=== PATIENT | female | born 2000 | race Caucasian/White ===

== ENCOUNTER 2021-05-07 16:15 | Emergency (ER) | payer OTHER, MEDICAID, SELFPAY ==
[2021-05-07 16:34] VITALS: PULSE 99; RESP 17; TEMP 36.3; O2SAT 99; BMI 29.2
[2021-05-07 17:00] VITALS: PULSE 80; RESP 18; O2SAT 97
[2021-05-07 17:03] LABS: COVID19 -Nasal RAPID Negative (Negative)
--- NOTE | 2021-05-07 17:25 | ED_ITS ---
HPI - URI/Sore Throat <Irene Bueno DO - Last Filed: 05/08/21 07:51> General Chief Complaint: Upper Respiratory Symptoms Stated Complaint: Cold, Chest Pain Time Seen by Provider: 05/07/21 17:24 Source: patient Mode of arrival: Ambulatory Limitations: no limitations History of Present Illness HPI Narrative: This is a 20-year-old female comes in with a complaint of nasal congestion that progressed to chest pain, cough that is been nonproductive. Patient states she feels short of breath when she changed her toddler around but otherwise has not been short of breath. She has not had fevers but she has felt generally unwell. She has tried DayQuil and NyQuil without improvement. She has had 7 days of symptoms. She had 1 episode of vomiting 2 days ago. She states that chest discomfort is sort of subxiphoid and radiates towards her back. She denies any other diarrhea constipation or urinary symptoms. She denies medical issues. She has had a prior cholecystectomy. Tobacco, alcohol or illicit. She states her child similar symptoms. Related Data Home Medications Medication Instructions Recorded Confirmed famotidine 20 mg tablet 20 mg PO QDAY #0 04/16/17 sucralfate 1 gram tablet 1 gm PO ACHS #0 04/16/17 Previous Rx's Medication Instructions Recorded oxycodone 5 mg tablet 5 mg PO Q4HP PRN #30 tab 04/17/17 dextromethorphan HBr 15 mg tablet 30 mg PO Q6H PRN #10 tab 05/07/21 (Delsym Cough) Allergies Allergy/AdvReac Type Severity Reaction Status Date / Time No Known Allergies Allergy Uncoded 08/08/17 12:47 Review of Systems <Irene Bueno DO - Last Filed: 05/08/21 07:51> Review of Systems ROS Unobtainable: All systems reviewed & are unremarkable except as noted in HPI and below Patient History <Irene Bueno DO - Last Filed: 05/08/21 07:51> Social History Smoking Status: Never smoker Smoking Status: Never smoker alcohol intake frequency: other Substance Use Type: does not use Exam <Irene Bueno DO - Last Filed: 05/08/21 07:51> Narrative Exam Narrative: GEN: well nourished, well appearing female, alert and oriented x 3, patient appears to be in mild distress. HEENT: Atraumatic, pupils are equal round reactive to light, extraocular movements are intact, nares clear nasal congestion, TMs are clear with no fluid, there is no conjunctival pallor. Throat is clear without any exudates, erythema, tonsillar enlargement or uvular deviation HEART: Regular rate and rhythm without murmur, clicks, rubs. LUNGS:Lungs clear to auscultation, no wheezes, rales, crackles, chest moves symmetrically, no tachypnea accessory muscle use. Patient speaks in full sentences but does have a dry persistent cough. ABD:bowel sounds normal, soft, non-tender, no guarding, rebound, rigidity, no masses noted, no hepatosplenomegaly MSCL: Full range of motion, normal gait NEURO:CN 2-12 intact, sensation normal Initial Vital Signs Initial Vital Signs: Vital Signs Temperature 97.3 F L 05/07/21 16:34 Pulse Rate 99 H 05/07/21 16:34 Respiratory Rate 17 05/07/21 16:34 Pulse Oximetry 99 05/07/21 16:34 <Jass Moreau DO - Last Filed: 05/07/21 23:09> Initial Vital Signs Initial Vital Signs: Vital Signs Temperature 97.3 F L 05/07/21 16:34 Pulse Rate 99 H 05/07/21 16:34 Respiratory Rate 17 05/07/21 16:34 Pulse Oximetry 99 05/07/21 16:34 Course <Irene Bueno, DO - Last Filed: 05/08/21 07:51> Orders Ordered: Discontinued Medications Benzonatate (Benzonatate 100 Mg Capsule) 100 mg PO NOW ONE Stop: 05/07/21 17:42 Last Admin: 05/07/21 17:47 Dose: 100 mg Documented by: VÍCTOR Vital Signs Vital signs: Vital Signs - 8 hr 05/07/21 16:34 05/07/21 17:00 05/07/21 17:30 Temperature 97.3 F L Pulse Rate 99 H 80 111 H Respiratory Rate 17 18 Blood Pressure Pulse Oximetry 99 97 99 05/07/21 17:32 05/07/21 19:45 Temperature 98.0 F Pulse Rate 95 H 80 Respiratory Rate 16 Blood Pressure 115/87 117/72 Pulse Oximetry 99 98 <Jass Moreau DO - Last Filed: 05/07/21 23:09> Orders Ordered: Discontinued Medications Benzonatate (Benzonatate 100 Mg Capsule) 100 mg PO NOW ONE Stop: 05/07/21 17:42 Last Admin: 05/07/21 17:47 Dose: 100 mg Documented by: YAIMAYERS Vital Signs Vital signs: Vital Signs - 8 hr 05/07/21 16:34 05/07/21 17:00 05/07/21 17:30 Temperature 97.3 F L Pulse Rate 99 H 80 111 H Respiratory Rate 17 18 Blood Pressure Pulse Oximetry 99 97 99 05/07/21 17:32 05/07/21 19:45 Temperature 98.0 F Pulse Rate 95 H 80 Respiratory Rate 16 Blood Pressure 115/87 117/72 Pulse Oximetry 99 98 MDM - URI/Sore Throat <Irene Bueno DO - Last Filed: 05/08/21 07:51> Lab Data Labs: Lab Results 05/07/21 05/07/21 Range/Units 16:45 17:56 Serum , Qual Negative (Negative) SARS-CoV-2 (PCR) Negative (Negative) ECG Data Attestation: I personally reviewed and interpreted this ECG as follows: Prior ECG tracings: not available for review Interpretation: Sinus rhythm rate 82 [place] 144 QRS is 72 and QTC of 427. No acute ST elevation or depression noted. No prior for comparison. [facility] Narrative Medical decision making narrative: Dr. Bueno: This is a 20-year-old female with what appears to be upper respiratory infection but complaint of chest pain. EKG is reassuring. COVID swab was negative. Patient has quite a bit of upper respiratory nasal congestion with dry nonproductive cough. Chest x-ray was obtained to evaluate for pneumonia although her physical exam is reassuring from this aspect. This was still pending the patient was signed out to Dr. Moreau to follow chest x-ray and disposition. Dr Moreau: Received turned over. Review patient's history and physical. Awaiting results of chest X way which resulted as no acute disease. Patient not hypoxic. No indication for antibiotics. COVID was negative. I did discuss this with the patient. She was given return precautions and follow-up instructions. She expressed understanding and agreement. <Jass Moreau DO - Last Filed: 05/07/21 23:09> Lab Data Labs: Lab Results 05/07/21 05/07/21 Range/Units 16:45 17:56 Serum , Qual Negative (Negative) SARS-CoV-2 (PCR) Negative (Negative) Imaging Data Chest x-ray: Radiologist's Impression: [address] [address] XRay Report Signed Patient: Jeny Richards MR#: [id number] : 2000 Acct:[id number] Age/Sex: 20 / F Date of Service: 05/07/21 Loc: ED Accession Number: [id number] ?? Procedure: XR chest 1V Ordering Provider: Irene Bueno D.O. PROCEDURE:? XR CHEST 1V ? INDICATIONS:? cough x 1 week, chest pain ? TECHNIQUE:? One view of the chest was acquired.? ? COMPARISON:? None. ? FINDINGS:? ? Surgical changes and devices:? Cholecystectomy clips. ? Lungs and pleura:? Lungs are clear.? No pleural effusions or pneumothorax.? ? Mediastinum:? Mediastinal contours appear normal.? Heart size is normal.? ? Bones and chest wall:? No suspicious bony lesions.? Overlying soft tissues appear unremarkable.? ? IMPRESSION:? No acute cardiopulmonary abnormality. ? ? ? Dictated by: Gerardo Rios M.D. on 05/07/2021 at 19:22 ? ? Approved by: Gerardo Rios M.D. on 05/07/2021 at 19:22?? MDM Narrative Medical decision making narrative: Dr Moreau: Received turned over. Review patient's history and physical. Awaiting results of chest X way which resulted as no acute disease. Patient not hypoxic. No indication for antibiotics. COVID was negative. I did discuss this with the patient. She was given return precautions and follow-up instructions. She expressed understanding and agreement. Discharge Plan Departure Patient Disposition: Home Clinical Impression: Acute upper respiratory infection Instructions: DI for Viral Upper Respiratory Infection -- Adult Activity Restrictions/Additional Instructions: Follow-up if you are not improving over the next week. You may take cough medication as prescribed. This medication can make you sleepy do not drive, perform hazardous activities or make any major decisions wh ile taking it. This medication will make you constipated please take a stool softener once to twice daily until stools are soft and regular. Please return for persistent fevers, new or worsening chest pain, shortness of breath, persistent vomiting, passing out, black or bloody stools, coughing up blood or other new or concerning symptoms. Prescriptions: New Delsym Cough 15 mg tablet 30 mg PO Q6H PRN (Reason: cough) Qty: 10 0RF No Action sucralfate 1 GM tablet 1 gm PO ACHS Qty: 0 0RF famotidine 20 MG tablet 20 mg PO QDAY Qty: 0 0RF oxycodone 5 MG tablet 5 mg PO Q4HP PRNQty: 30 0RF
[2021-05-07 17:30] VITALS: PULSE 111; O2SAT 99
[2021-05-07 17:32] VITALS: BP 115/87; PULSE 95; O2SAT 99
--- NOTE | 2021-05-07 17:33 | DI.RAD.S_ITS ---
PROCEDURE: XR CHEST 1V INDICATIONS: cough x 1 week, chest pain TECHNIQUE: One view of the chest was acquired. COMPARISON: None. FINDINGS: Surgical changes and devices: Cholecystectomy clips. Lungs and pleura: Lungs are clear. No pleural effusions or pneumothorax. Mediastinum: Mediastinal contours appear normal. Heart size is normal. Bones and chest wall: No suspicious bony lesions. Overlying soft tissues appear unremarkable. IMPRESSION: No acute cardiopulmonary abnormality. Dictated by: Gerardo Rios M.D. on 05/07/2021 at 19:22 Approved by: Gerardo Rios M.D. on 05/07/2021 at 19:22
[2021-05-07] MEDS: BENZONATATE 100 MG CAPSULE PO (17:47)
[2021-05-07 18:38] LABS: Pregnancy Test Serum,Qual Negative (Negative)
[2021-05-07 19:45] VITALS: BP 117/72; PULSE 80; RESP 16; TEMP 36.7; O2SAT 98
== END 2021-05-07 19:45 | disposition home or self-care (01) ==
PROVIDERS: Emergency Medicine; Emergency Provider Emergency Medicine; Family Provider Pediatrics
DX: R07.9 Chest pain, unspecified (principal); J06.9 Acute upper respiratory infection, unspecified; Z20.822 Contact with and (suspected) exposure to COVID-19
CPT/HCPCS: 71045; 84703; 87635; 93005; 93010; 99283; C9803

== ENCOUNTER 2021-07-30 10:50 | Emergency (ER) | payer OTHER, MEDICAID, SELFPAY ==
[2021-07-30 11:05] VITALS: BP 136/74; PULSE 88; PULSE 89; RESP 18; TEMP 36.6; O2SAT 98; BMI 29.7
[2021-07-30 11:06] VITALS: PULSE 96; O2SAT 98
--- NOTE | 2021-07-30 11:45 | DI.US.S_ITS ---
PROCEDURE: US OB <= 14 WEEKS FETUS INDICATIONS: BLEEDING DURING OUTSIDE/PRIOR DATING DATA: Last menstrual period (LMP): 06/12/2021. TECHNIQUE: Real-time scanning was performed of the fetus and maternal pelvic organs, with image documentation. Endovaginal scanning was also performed to better visualize the fetus and maternal ovaries. COMPARISON: None. FINDINGS: No intrauterine . Endometrial thickness measures 1.6 cm. No evidence of retained products of conception. There is and endocervical fluid collection measuring 1.5 x 0.4 cm Both ovaries unremarkable. 1.6 x 1.2 cm probable right corpus luteum cyst present. No free fluid or adnexal mass. IMPRESSION: 1. No evidence of intrauterine . Fluid in the endocervical canal noted. Differential possibilities include normal early , failure with in progress, endocervical pseudocyst and nonvisualized ectopic . Approved by: Richie Swan M.D. on 07/30/2021 at 11:58
[2021-07-30 11:50] VITALS: BP 110/69; PULSE 91; O2SAT 98
[2021-07-30 12:00] VITALS: BP 109/71; PULSE 80; O2SAT 97
--- NOTE | 2021-07-30 12:07 | ED_ITS ---
HPI - <JAIRO Sarmiento - Last Filed: 07/30/21 14:59> General Chief complaint: Vaginal Bleeding Stated complaint: and bleeding Time Seen by Provider: 07/30/21 12:02 Source: patient Mode of arrival: Ambulatory Limitations: no limitations History of Present Illness HPI Narrative: 20-year-old female with last menstrual period on 06/12/2021, positive test at home on 06/24/2021 presents to the emergency department today with onset of vaginal bleeding and pelvic cramping. She states that her blood is dark red/brown in color. She states that this was a lot of blood for her. She denies any nausea, vomiting, feeling faint, or syncope. She denies any significant pelvic pain on 1 side or the other, she states that this is generalized. Patient has an upcoming OB appointment on August 02, [address] Farnsworth. Related Data Home Medications Medication Instructions Recorded Confirmed famotidine 20 mg tablet 20 mg PO QDAY #0 04/16/17 sucralfate 1 gram tablet 1 gm PO ACHS #0 04/16/17 Previous Rx's Medication Instructions Recorded oxycodone 5 mg tablet 5 mg PO Q4HP PRN #30 tab 04/17/17 dextromethorphan HBr 15 mg tablet 30 mg PO Q6H PRN #10 tab 05/07/21 (Delsym Cough) ketorolac 10 mg tablet 10 mg PO Q8H PRN #14 tab 07/30/21 ondansetron 4 mg disintegrating 4 mg PO DAILY PRN 4 Days #10 tab 07/30/21 tablet Allergies Allergy/AdvReac Type Severity Reaction Status Date / Time No Known Allergies Allergy Uncoded 08/08/17 12:47 Review of Systems <JAIRO Sarmiento - Last Filed: 07/30/21 14:59> Review of Systems Narrative: General: denies fever, chills Head/Neck: denies headache, neck pain Eyes: denies visual changes, eye pain Cardio: denies chest pain, palpitations Respiratory: denies shortness of breath, cough GI: denies abdominal pain, nausea, vomiting, or diarrhea : denies dysuria, hematuria MSK: denies joint pain, muscle weakness Skin: denies rash, itching Neuro: denies numbness, tingling Exam <JAIRO Sarmiento - Last Filed: 07/30/21 14:59> Initial Vital Signs Initial Vital Signs: Vital Signs Temperature 98 F 07/30/21 11:05 Pulse Rate 89 07/30/21 11:05 Respiratory Rate 18 07/30/21 11:05 Blood Pressure 136/74 07/30/21 11:05 Pulse Oximetry 98 07/30/21 11:05 <Irene Bueno DO - Last Filed: 07/30/21 16:50> Initial Vital Signs Initial Vital Signs: Vital Signs Temperature 98 F 07/30/21 11:05 Pulse Rate 89 07/30/21 11:05 Respiratory Rate 18 07/30/21 11:05 Blood Pressure 136/74 07/30/21 11:05 Pulse Oximetry 98 07/30/21 11:05 Course <JAIRO Sarmiento - Last Filed: 07/30/21 14:59> Orders Ordered: ED Orders 07/30/21 11:45 US OB <= 14 weeks fetus Stat 07/30/21 11:58 Urine Microscopic Stat 07/30/21 12:34 CBC Auto Diff [Complete Blood Count AUTO DIFF] Stat CMP [Comprehensive Metabolic Panel] Stat HCG Quantitative /Beta subunit Stat Discontinued Medications Ketorolac Tromethamine (Ketorolac 30 Mg/Ml Vial) 15 mg IM NOW ONE Stop: 07/30/21 13:36 Last Admin: 07/30/21 13:41 Dose: 15 mg Documented by: LANCE Ondansetron HCl (Ondansetron 4 Mg Odt) 4 mg SL NOW ONE Stop: 07/30/21 13:36 Last Admin: 07/30/21 13:40 Dose: 4 mg Documented by: LANCE Vital Signs Vital signs: Vital Signs - 8 hr 07/30/21 11:05 07/30/21 11:06 07/30/21 11:50 Temperature 98 F Pulse Rate 88 96 H 91 H Respiratory Rate 18 Blood Pressure 136/74 110/69 Pulse Oximetry 98 98 98 07/30/21 12:00 07/30/21 13:46 07/30/21 13:47 Temperature Pulse Rate 80 82 Respiratory Rate Blood Pressure 109/71 132/83 Pulse Oximetry 97 99 100 <Irene Bueno DO - Last Filed: 07/30/21 16:50> Orders Ordered: ED Orders 07/30/21 11:45 US OB <= 14 weeks fetus Stat 07/30/21 11:58 Urine Microscopic Stat 07/30/21 12:34 CBC Auto Diff [Complete Blood Count AUTO DIFF] Stat CMP [Comprehensive Metabolic Panel] Stat HCG Quantitative /Beta subunit Stat Discontinued Medications Ketorolac Tromethamine (Ketorolac 30 Mg/Ml Vial) 15 mg IM NOW ONE Stop: 07/30/21 13:36 Last Admin: 07/30/21 13:41 Dose: 15 mg Documented by: LANCE Ondansetron HCl (Ondansetron 4 Mg Odt) 4 mg SL NOW ONE Stop: 07/30/21 13:36 Last Admin: 07/30/21 13:40 Dose: 4 mg Documented by: LANCE Vital Signs Vital signs: Vital Signs - 8 hr 07/30/21 11:05 07/30/21 11:06 07/30/21 11:50 Temperature 98 F Pulse Rate 88 96 H 91 H Respiratory Rate 18 Blood Pressure 136/74 110/69 Pulse Oximetry 98 98 98 07/30/21 12:00 07/30/21 13:46 07/30/21 13:47 Temperature Pulse Rate 80 82 Respiratory Rate Blood Pressure 109/71 132/83 Pulse Oximetry 97 99 100 MDM - OB/Uterine Contractions <JAIRO Sarmiento - Last Filed: 07/30/21 14:59> Lab Data Result diagrams: 07/30/21 12:34 07/30/21 12:34 Labs: Lab Results 07/30/21 07/30/21 07/30/21 Range/Units 11:58 12:34 12:34 WBC 9.8 (4.5-11.0) X10^3/uL RBC 4.73 (4.0-5.2) X10^6/uL Hgb 13.7 (12.0-16.0) g/dL Hct 40.0 (36-46) % MCV 84.5 (80-100) fL MCH 28.9 (26-34) PG MCHC 34.1 (30-36) % RDW 14.1 (11.6-14.8) % Plt Count 257 (150-400) X10^3/uL Neut % (Auto) 72.3 (50-75) % Lymph % (Auto) 20.2 L (25-40) % [place] % (Auto) 6.0 (3-14) % Eos % (Auto) 1.1 L (2-4) % Baso % (Auto) 0.4 (0-2) % Neut # (Auto) 7100 H (8228-5677) /uL Lymph # (Auto) 2000 (6348-1915) /uL [place] # (Auto) 600 (0-900) /uL Eos # (Auto) 100 (0-450) /uL Baso # (Auto) 0 (0-100) /uL Sodium 140 (137-145) mmol/L Potassium 4.0 (3.4-5.1) mmol/L Chloride 107 (98-107) mmol/L Carbon Dioxide 24 (22-32) mmol/L BUN 11 (7-17) mg/dL Creatinine 0.62 (0.52-1.04) mg/dL Estimated GFR > 60.0 (>60) mL/min BUN/Creatinine Ratio 17.7 (6-22) Glucose 87 (70-100) mg/dL Calcium 9.5 (8.4-10.2) mg/dL Total Bilirubin 0.3 (0.2-1.3) mg/dL AST 21 (14-36) IU/L ALT 15 (<35) IU/L Alkaline Phosphatase 55 (38-126) U/L Total Protein 8.5 H (6.3-8.2) g/dL Albumin 5.1 H (3.5-5.0) g/dL Globulin 3.4 (1.7-4.1) g/dL Albumin/Globulin Ratio 1.5 (1.0-2.8) HCG, Quant 3788.2 mIU/mL Urine RBC >100/hpf H (0-5/HPF) Urine WBC 0-1/hpf (0-5/HPF) Ur Squamous Epith Cells 1-5 /hpf (0-5/HPF) Urine Bacteria None seen (None) Ur Culture Indicated? Cult not indicated Point of Care Testing Test Results Positive Urine Dip Bedside Urine Glucose Negative Bedside Urine Bilirubin - Negative Bedside Urine Ketone - Negative Urine Specific [place] 1.015 Bedside Urine Occult Blood +++ Bedside Urine pH 6.5 Bedside Urine Protein +/- 15 Bedside Urine Urobilinogen - Negative Bedside Urine Nitrite - Negative Bedside Urine Leukocytes - Negative Esterase Imaging Data US - OB: Radiologist's Impression: PROCEDURE:? US OB <= 14 WEEKS FETUS ? INDICATIONS:? BLEEDING DURING ? OUTSIDE/PRIOR DATING DATA:? Last menstrual period (LMP):? 06/12/2021.? ? TECHNIQUE:? Real-time scanning was performed of the fetus and maternal pelvic organs, with image documentation.? Endovaginal scanning was also performed to better visualize the fetus and maternal ovaries.? ? COMPARISON:? None. ? FINDINGS:? ? No intrauterine .? Endometrial thickness measures 1.6 cm.? No evidence of retained products of conception.? There is and endocervical fluid collection measuring 1.5 x 0.4 cm ? Both ovaries unremarkable.? 1.6 x 1.2 cm probable right corpus luteum cyst present.? No free fluid or adnexal mass. ? ? IMPRESSION:? ? 1. No evidence of intrauterine .? Fluid in the endocervical canal no consuelo.? Differential possibilities include normal early , failure with in progress, endocervical pseudocyst and nonvisualized ectopic . ? ? Approved by: Richie Swan M.D. on 07/30/2021 at 11:58? MDM Narrative Medical decision making narrative: This is a 20-year-old female with last menstrual period on 06/12/2021, positive home test on 06/24/2021 who presents to the emergency department with onset of vaginal bleeding and pelvic cramping this morning. Urine today was positive, H&H was 13.7 and 40.0, no leukocytosis, HCG was 3788.2. Ultrasound OB less than 14 weeks showed no evidence of intrauterine , fluid present in the endocervical canal measuring approximately 1.5 x 0.4 cm. Both ovaries were unremarkable, 1.6 x 1.2 cm probable right corpus lut eum cyst present, no free fluid or adnexal mass. Patient was informed that this is a miscarriage. She was instructed to follow-up with her OBGYN on August 02 as scheduled and have her hCG drawn. Patient was informed that she may likely still have bleeding and cramping with possible tissue or products of conception in her vaginal discharge. Has an upcoming OB appointment with Dr. Cardenas on 08/02/2021. Differential includes early , failure with in progress, endocervical pseudocyst, nonvisualized ectopic , ruptured ovarian cyst. Patient was given strict return precautions for any worsening of her pain, hemorrhage, nausea vomiting. She was given a prescr iption for Zofran and p.o. Toradol. She was given Zofran and Toradol in the emergency department. Patient Is appropriate and amenable to discharge home. Vital signs are stable on repeat examination is unremarkable. Patient has been informed of results. Patient has been given strict return to ER precautions for any new or worsening symptoms. Patient understands to follow up closely with outpatient providers as instructed. Patient understands plan and agrees to discharge home. All questions and concerns answered at this time. <Irene Bueno, DO - Last Filed: 07/30/21 16:50> Lab Data Labs: Lab Results 07/30/21 07/30/21 07/30/21 Range/Units 11:58 12:34 12:34 WBC 9.8 (4.5-11.0) X10^3/uL RBC 4.73 (4.0-5.2) X10^6/uL Hgb 13.7 (12.0-16.0) g/dL Hct 40.0 (36-46) % MCV 84.5 (80-100) fL MCH 28.9 (26-34) PG MCHC 34.1 (30-36) % RDW 14.1 (11.6-14.8) % Plt Count 257 (150-400) X10^3/uL Neut % (Auto) 72.3 (50-75) % Lymph % (Auto) 20.2 L (25-40) % Churchill % (Auto) 6.0 (3-14) % Eos % (Auto) 1.1 L (2-4) % Baso % (Auto) 0.4 (0-2) % Neut # (Auto) 7100 H (8109-3808) /uL Lymph # (Auto) 2000 (7308-3647) /uL Churchill # (Auto) 600 (0-900) /uL Eos # (Auto) 100 (0-450) /uL Baso # (Auto) 0 (0-100) /uL Sodium 140 (137-145) mmol/L Potassium 4.0 (3.4-5.1) mmol/L Chloride 107 (98-107) mmol/L Carbon Dioxide 24 (22-32) mmol/L BUN 11 (7-17) mg/dL Creatinine 0.62 (0.52-1.04) mg/dL Estimated GFR > 60.0 (>60) mL/min BUN/Creatinine Ratio 17.7 (6-22) Glucose 87 (70-100) mg/dL Calcium 9.5 (8.4-10.2) mg/dL Total Bilirubin 0.3 (0.2-1.3) mg/dL AST 21 (14-36) IU/L ALT 15 (<35) IU/L Alkaline Phosphatase 55 (38-126) U/L Total Protein 8.5 H (6.3-8.2) g/dL Albumin 5.1 H (3.5-5.0) g/dL Globulin 3.4 (1.7-4.1) g/dL Albumin/Globulin Ratio 1.5 (1.0-2.8) HCG, Quant 3788.2 mIU/mL Urine RBC >100/hpf H (0-5/HPF) Urine WBC 0-1/hpf (0-5/HPF) Ur Squamous Epith Cells 1-5 /hpf (0-5/HPF) Urine Bacteria None seen (None) Ur Culture Indicated? Cult not indicated Point of Care Testing Test Results Positive Urine Dip Bedside Urine Glucose Negative Bedside Urine Bilirubin - Negative Bedside Urine Ketone - Negative Urine Specific [place] 1.015 Bedside Urine Occult Blood +++ Bedside Urine pH 6.5 Bedside Urine Protein +/- 15 Bedside Urine Urobilinogen - Negative Bedside Urine Nitrite - Negative Bedside Urine Leukocytes - Negative Esterase Discharge Plan Departure Patient Disposition: Home Clinical Impression: Incomplete miscarriage Instructions: Miscarriage Activity Restrictions/Additional Instructions: *You have been diagnosed with no intrauterine . You have vaginal bleeding concerning for a miscarriage, a small amount of fluid in the endocervical canal which is possibly with an hCG level of 3788. Please take Toradol every 6-8 hours as needed for cramping pain, do not taking ibuprofen or naproxen with this medication. Please drink plenty of water. Please stay hydrated, take care of your head in your heart, there is nothing you could have done to prevent this from happening. I am sorry, hope that you start feeling better soon. Please follow-up with your OBGYN at your appointment on August 02. Please have your hCG level drawn, and a pelvic exam if you have not passed any tissue or larger clots. Please return to the emergency department for any worsening of your pain. I have called in some nausea and pain medicine for you. *What to do: *Please continue to take your regular medications as directed. [x ] New medication prescriptions sent to your pharmacy: [[facility] ] [ ] New medication written as a paper prescription [ ] No new medications given *Please follow up with your primary care provider in 2-3 days, call for an appointment. Let them know you were seen in the Emergency Department and that we asked that you be seen for follow-up. We will electronically transmit a record of today's note if your PCP is in our system *If you do not have a primary care provider please contact [phone] to establish care with one of the [facility] primary care providers. *Return to Emergency Department if you should have any new, worsening or concerning symptoms, such as [fever greater than 101F, chills, worsening pain, persistent vomiting or other bothersome symptoms] Prescriptions: New ketorolac 10 mg tablet 10 mg PO Q8H PRN (Reason: pain) Qty: 14 0RF ondansetron 4 mg tablet,disintegrating 4 mg PO DAILY PRN (Reason: nausea and vomiting) 4 Days Qty: 10 0RF No Action sucralfate 1 GM tablet 1 gm PO ACHS Qty: 0 0RF famotidine 20 MG tablet 20 mg PO QDAY Qty: 0 0RF oxycodone 5 MG tablet 5 mg PO Q4HP PRNQty: 30 0RF Delsym Cough 15 mg tablet 30 mg PO Q6H PRN (Reason: cough) Qty: 10 0RF Referrals: Apryl Cardenas ARNP [Non-Staff] - As soon as possible <Irene Bueno DO - Last Filed: 07/30/21 16:50> Cosign ED Attending Zenaature Attestation: I was immediately available in the department for consultation. Documentation has been reviewed.
[2021-07-30 12:11] LABS: Bacteria Urine None Seen; Culture Indicated Urine Cult Not Indicated; RBC Urine >100/HPF (0-5/HPF); Squamous Epithelial Cell Urine 1-5 /HPF (0-5/HPF); WBC Urine 0-1/HPF (0-5/HPF)
[2021-07-30 12:41] LABS: Add Manual Diff / Slide Review NO; Basophils Absolute Auto 0 /uL (0-100); Basophils Percent Auto 0.4 % (0-2); Eosinophils Absolute Auto 100 /uL (0-450); Eosinophils Percent Auto 1.1 % (2-4); Hemoglobin 13.7 g/dL (12.0-16.0); Lymphocytes Absolute Auto 2000 /uL (1100-4500); Lymphocytes Percent Auto 20.2 % (25-40); Mean Corpuscular HGB Conc 34.1 % (30-36); Mean Corpuscular Hemoglobin 28.9 PG (26-34); Mean Corpuscular Volume 84.5 fL (80-100); Monocytes Absolute Auto 600 /uL (0-900); Neutrophils Absolute Auto 7100 /uL (1500-7000); Neutrophils Percent Auto 72.3 % (50-75); Platelet Count 257 X10^3/uL (150-400); Red Blood Cell Count 4.73 X10^6/uL (4.0-5.2); Red Cell Distribution Width 14.1 % (11.6-14.8); White Blood Cell Count 9.8 X10^3/uL (4.5-11.0)
[2021-07-30 13:00] LABS: Alanine Aminotransferase 15 IU/L (<35); Albumin 5.1 g/dL (3.5-5.0); Albumin Globulin Ratio 1.5 (1.0-2.8); Alkaline Phosphatase 55 U/L (38-126); Aspartate Aminotransferase 21 IU/L (14-36); BUN Creatinine Ratio 17.7 (6-22); Bilirubin Total 0.3 mg/dL (0.2-1.3); Blood Urea Nitrogen 11 mg/dL (7-17); Calcium 9.5 mg/dL (8.4-10.2); Carbon Dioxide 24 mmol/L (22-32); Chloride 107 mmol/L (98-107); Estimated Glomerular Filt Rate > 60.0 mL/min (>60); Globulin 3.4 g/dL (1.7-4.1); Glucose 87 mg/dL (70-100); HEMOLYSIS < 15 (0-50); Sodium 140 mmol/L (137-145); Total Protein 8.5 g/dL (6.3-8.2)
[2021-07-30 13:17] LABS: HCG Quantitative /Beta subunit 3788.2 mIU/mL
[2021-07-30] MEDS: ONDANSETRON 4 MG ODT SL (13:40)
[2021-07-30] MEDS: KETOROLAC 30 MG/ML VIAL 15 MG IM (13:41)
[2021-07-30 13:46] VITALS: O2SAT 99
[2021-07-30 13:47] VITALS: BP 132/83; PULSE 82; O2SAT 100
== END 2021-07-30 13:53 | disposition home or self-care (01) ==
PROVIDERS: Emergency Medicine; Emergency Provider Nurse Practitioner Critical Care Medicine; Family Provider Pediatrics
DX: O03.4 Incomplete spontaneous abortion without complication (principal)
CPT/HCPCS: 36415; 76801; 76817; 80053; 81003; 81015; 81025; 84702; 85025; 96372; 99283; 99284; J1885

== ENCOUNTER 2022-08-02 06:06 | Emergency (ER) | payer OTHER, MEDICAID, SELFPAY ==
[2022-08-02] VITALS (9 sets, daily range): BP systolic 94–118; BP diastolic 50–76; PULSE 98–127; RESP 24; TEMP 37.1; O2SAT 97–100
--- NOTE | 2022-08-02 06:29 | ED.GENADULT ---
HPI - General Adult <Hortencia Brothers MD - Last Filed: 08/03/22 18:06> General Chief complaint: Abdominal Pain Stated complaint: vomiting/diarrhea/chills Time Seen by Provider: 08/02/22 06:29 History of Present Illness HPI narrative: 21-year-old woman who presents with acute nausea vomiting diarrhea and abdominal pain all symptoms starting approximately 1:00 a.m.. Her 3-year-old daughter had similar symptoms 48 hours ago and was seen in the emergency department and diagnosed with entero virus. Patient notes that she is not currently using control and is due to start her menstrual cycle tomorrow. She complains of dizziness when she stands up, significant abdominal pain and she is unsure if the pain is simply related to the violence of her emesis or beyond that. Of note the pain did not start until she had vomited a couple of times. She does note that the emesis is mostly dry heaves at this point and has not been bloody. She states that the diarrhea is watery and nonbloody. She denies any fevers, cough, palpitations. Related Data Home Medications Medication Instructions Recorded Confirmed famotidine 20 mg tablet 20 mg PO QDAY ##0 04/16/17 sucralfate 1 gram tablet 1 gm PO ACHS ##0 04/16/17 Previous Rx's Medication Instructions Recorded oxycodone 5 mg tablet 5 mg PO Q4HP PRN #30 tabs 04/17/17 dextromethorphan HBr 15 mg tablet 30 mg PO Q6H PRN cough #10 tabs 05/07/21 (Delsym Cough) ketorolac 10 mg tablet 10 mg PO Q8H PRN pain #14 tabs 07/30/21 ondansetron 4 mg disintegrating 4 mg PO Q4-6H PRN nausea and 08/02/22 tablet vomiting #20 tabs Allergies Allergy/AdvReac Type Severity Reaction Status Date / Time No Known Allergies Allergy Uncoded 08/08/17 12:47 Review of Systems <Hortencia Brothers MD - Last Filed: 08/03/22 18:06> Review of Systems Narrative: Pertinent positive and negative findings as per HPI Patient History <Hortencia Brothers MD - Last Filed: 08/03/22 18:06> Social History Smoking Status: Never smoker Smoking Status: Never smoker alcohol intake frequency: other Substance Use Type: does not use Exam <Hortencia Brothers MD - Last Filed: 08/03/22 18:06> Initial Vital Signs Initial Vital Signs: Vital Signs Temperature 98.8 F 08/02/22 06:15 Pulse Rate 127 H 08/02/22 06:15 Respiratory Rate 24 08/02/22 06:15 Blood Pressure 118/76 08/02/22 06:15 Pulse Oximetry 97 08/02/22 06:15 Oxygen Delivery Method Room Air 08/02/22 06:15 General: Pale with deep circles under her eyes and appears to feel unwell. Able to give a complete and coherent history. HEENT: Dry mucous membranes, normal sclera with reactive pupils, Respiratory: Lungs are clear to auscultation, no wheezing no rales no rhonchi. Full and symmetrical air movement Cardiac: Tachycardic, no murmurs no bruits Abdomen: Soft, diffusely tender with increased tenderness in the epigastrium and the left lower quadrant, hyperactive bowel tones, no flank pain Skin: Pale and dry, no rashes Neurologic: Globally weak but otherwise Grossly neurologically intact with no obvious asymmetries or abnormalities Extremities: No trauma, poor overall perfusion Psych: Cooperative, appropriate insight and affect <Toney Nunez MD - Last Filed: 08/02/22 10:15> Initial Vital Signs Initial Vital Signs: Vital Signs Temperature 98.8 F 08/02/22 06:15 Pulse Rate 127 H 08/02/22 06:15 Respiratory Rate 24 08/02/22 06:15 Blood Pressure 118/76 08/02/22 06:15 Pulse Oximetry 97 08/02/22 06:15 Oxygen Delivery Method Room Air 08/02/22 06:15 Course <Hortencia Brothers MD - Last Filed: 08/03/22 18:06> Orders Ordered: Discontinued Medications Sodium Chloride (Normal Saline 0.9%) 1,000 mls @ 2,000 mls/hr IV BOLUS ONE Stop: 08/02/22 07:02 Last Infusion: 08/02/22 09:08 Dose: 0 mls/hr Documented By: Admin: 08/02/22 06:49 Dose: 2,000 mls/hr Documented By: WALTER Sodium Chloride (Normal Saline 0.9%) 1,000 mls @ 1,000 mls/hr IV BOLUS ONE Stop: 08/02/22 09:44 Last Infusion: 08/02/22 10:20 Dose: 0 mls/hr Documented By: Admin: 08/02/22 09:05 Dose: 1,000 mls/hr Documented By: AT Ketorolac Tromethamine (Ketorolac 30 Mg/Ml Vial) 30 mg IV NOW ONE Stop: 08/02/22 08:46 Last Admin: 08/02/22 09:02 Dose: 30 mg Documented By: AT Ondansetron HCl (Ondansetron 4 Mg/2 Ml Inj) 4 mg IV NOW ONE Stop: 08/02/22 06:34 Last Admin: 08/02/22 06:48 Dose: 4 mg Documented By: AP Pantoprazole Sodium (Pantoprazole 40 Mg Vial) 40 mg IV NOW ONE Stop: 08/02/22 06:37 Last Admin: 08/02/22 06:48 Dose: 40 mg Documented By: WALTER Vital Signs Vital signs: Vital Signs - 8 hr 08/02/22 06:15 08/02/22 07:14 08/02/22 07:14 Temperature 98.8 F Pulse Rate 127 H 108 H Respiratory Rate 24 Blood Pressure 118/76 104/60 Pulse Oximetry 97 100 Oxygen Delivery Method Room Air 08/02/22 07:30 08/02/22 07:30 08/02/22 08:00 Temperature Pulse Rate 98 H Respiratory Rate Blood Pressure 102/58 L 101/57 L Pulse Oximetry 100 Oxygen Delivery Method Room Air 08/02/22 08:00 08/02/22 08:30 08/02/22 08:30 Temperature Pulse Rate 98 H 106 H Respiratory Rate Blood Pressure 94/50 L Pulse Oximetry 99 97 Oxygen Delivery Method Room Air 08/02/22 09:00 08/02/22 09:00 08/02/22 09:30 Temperature Pulse Rate 104 H 104 H Respiratory Rate Blood Pressure 97/56 L Pulse Oximetry 98 97 Oxygen Delivery Method 08/02/22 09:32 08/02/22 09:32 08/02/22 10:00 Temperature Pulse Rate 105 H Respiratory Rate Blood Pressure 97/55 L 97/52 L Pulse Oximetry 98 Oxygen Delivery Method Room Air 08/02/22 10:00 Temperature Pulse Rate 101 H Respiratory Rate Blood Pressure Pulse Oximetry 98 Oxygen Delivery Method Room Air <Toney Nunez MD - Last Filed: 08/02/22 10:15> Course Course Narrative: Patient has been ill for 2 days with abdominal pain, nausea and diarrhea. She was exposed enterovirus. Care was assumed at change of shift from Dr. Gardner. She is feeling better with IV fluids, Zofran and Protonix. She still complains of abdominal cramping. Exam reveals diffuse upper abdominal discomfort with palpation. There is no distention. No guarding rebound, bowel sounds are normal. Despite IV hydration she is amenable urine output. 1/3 L of IV fluids is given. She has improved prior to discharge. She is discharged on Zofran for nausea, Tylenol as advised for cramping. 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 Orders Ordered: Discontinued Medications Sodium Chloride (Normal Saline 0.9%) 1,000 mls @ 2,000 mls/hr IV BOLUS ONE Stop: 08/02/22 07:02 Last Infusion: 08/02/22 09:08 Dose: 0 mls/hr Documented By: Admin: 08/02/22 06:49 Dose: 2,000 mls/hr Documented By: AP Sodium Chloride (Normal Saline 0.9%) 1,000 mls @ 1,000 mls/hr IV BOLUS ONE Stop: 08/02/22 09:44 Last Infusion: 08/02/22 10:20 Dose: 0 mls/hr Documented By: Admin: 08/02/22 09:05 Dose: 1,000 mls/hr Documented By: AT Ketorolac Tromethamine (Ketorolac 30 Mg/Ml Vial) 30 mg IV NOW ONE Stop: 08/02/22 08:46 Last Admin: 08/02/22 09:02 Dose: 30 mg Documented By: AT Ondansetron HCl (Ondansetron 4 Mg/2 Ml Inj) 4 mg IV NOW ONE Stop: 08/02/22 06:34 Last Admin: 08/02/22 06:48 Dose: 4 mg Documented By: AP Pantoprazole Sodium (Pantoprazole 40 Mg Vial) 40 mg IV NOW ONE Stop: 08/02/22 06:37 Last Admin: 08/02/22 06:48 Dose: 40 mg Documented By: AP Vital Signs Vital signs: Vital Signs - 8 hr 08/02/22 06:15 08/02/22 07:14 08/02/22 07:14 Temperature 98.8 F Pulse Rate 127 H 108 H Respiratory Rate 24 Blood Pressure 118/76 104/60 Pulse Oximetry 97 100 Oxygen Delivery Method Room Air 08/02/22 07:30 08/02/22 07:30 08/02/22 08:00 Temperature Pulse Rate 98 H Respiratory Rate Blood Pressure 102/58 L 101/57 L Pulse Oximetry 100 Oxygen Delivery Method Room Air 08/02/22 08:00 08/02/22 08:30 08/02/22 08:30 Temperature Pulse Rate 98 H 106 H Respiratory Rate Blood Pressure 94/50 L Pulse Oximetry 99 97 Oxygen Delivery Method Room Air 08/02/22 09:00 08/02/22 09:00 08/02/22 09:30 Temperature Pulse Rate 104 H 104 H Respiratory Rate Blood Pressure 97/56 L Pulse Oximetry 98 97 Oxygen Delivery Method 08/02/22 09:32 08/02/22 09:32 08/02/22 10:00 Temperature Pulse Rate 105 H Respiratory Rate Blood Pressure 97/55 L 97/52 L Pulse Oximetry 98 Oxygen Delivery Method Room Air 08/02/22 10:00 Temperature Pulse Rate 101 H Respiratory Rate Blood Pressure Pulse Oximetry 98 Oxygen Delivery Method Room Air Medical Decision Making <Hortencia Brothers MD - Last Filed: 08/03/22 18:06> Lab Data 08/02/22 06:40 08/02/22 06:40 Labs: Lab Results 08/02/22 08/02/22 08/02/22 Range/Units 06:40 06:40 06:40 WBC 10.2 (4.5-11.0) X10^3/uL RBC 4.96 (4.0-5.2) X10^6/uL Hgb 14.6 (12.0-16.0) g/dL Hct 42.7 (36-46) % MCV 86.2 (80-100) fL MCH 29.4 (26-34) PG MCHC 34.1 (30-36) % RDW 13.6 (11.6-14.8) % Plt Count 234 (150-400) X10^3/uL Neut % (Auto) 90.0 H (50-75) % Lymph % (Auto) 4.4 L (25-40) % [place] % (Auto) 4.6 (3-14) % Eos % (Auto) 0.9 L (2-4) % Baso % (Auto) 0.1 (0-2) % Neut # (Auto) 9200 H (1038-1049) /uL Lymph # (Auto) 400 L (0037-5706) /uL [place] # (Auto) 500 (0-900) /uL Eos # (Auto) 100 (0-450) /uL Baso # (Auto) 0 (0-100) /uL Sodium 139 (137-145) mmol/L Potassium 4.1 (3.4-5.1) mmol/L Chloride 102 (98-107) mmol/L Carbon Dioxide 25 (22-32) mmol/L BUN 18 H (7-17) mg/dL Creatinine 0.78 (0.52-1.04) mg/dL Estimated GFR > 60 (>60) mL/min BUN/Creatinine Ratio 23.1 H (6-22) Glucose 115 H (70-100) mg/dL Calcium 9.4 (8.4-10.2) mg/dL Total Bilirubin 1.1 (0.2-1.3) mg/dL AST 29 (14-36) IU/L ALT 35 H (<35) IU/L Alkaline Phosphatase 60 (38-126) U/L Total Protein 8.7 H (6.3-8.2) g/dL Albumin 5.1 H (3.5-5.0) g/dL Globulin 3.6 (1.7-4.1) g/dL Albumin/Globulin Ratio 1.4 (1.0-2.8) HCG, Quant < 2.4 mIU/mL MDM Narrative Medical decision making narrative: CC: Acute onset nausea, vomiting, diarrhea. New diagnosis uncertain prognosis Complicating co-morbidities: Daughter diagnosed with entero virus with similar symptoms 48 hours ago Data collected from: patient, Medical records reviewed: Differential considered: Entero virus, other viral etiology, bowel obstruction, appendicitis, diverticulitis, do not suspect but hCG is currently pending. Exam documented above, pertinent findings include: Dehydration with moderate orthostatic hypotension and tachycardia, pale with circles under her eyes. Abdominal tenderness that I suspect is more related to the severity of vomiting rather than primary abdominal pain causing the vomiting Lab Test results independently reviewed as above. Pertinent findings: Independently reviewed EKG as above Imaging studies independently reviewed: Consultations: Treatments: Re-evaluations: Discussion: <Toney Nunez MD - Last Filed: 08/02/22 10:15> Lab Data Labs: Lab Results 08/02/22 08/02/22 08/02/22 Range/Units 06:40 06:40 06:40 WBC 10.2 (4.5-11.0) X10^3/uL RBC 4.96 (4.0-5.2) X10^6/uL Hgb 14.6 (12.0-16.0) g/dL Hct 42.7 (36-46) % MCV 86.2 (80-100) fL MCH 29.4 (26-34) PG MCHC 34.1 (30-36) % RDW 13.6 (11.6-14.8) % Plt Count 234 (150-400) X10^3/uL Neut % (Auto) 90.0 H (50-75) % Lymph % (Auto) 4.4 L (25-40) % [place] % (Auto) 4.6 (3-14) % Eos % (Auto) 0.9 L (2-4) % Baso % (Auto) 0.1 (0-2) % Neut # (Auto) 9200 H (8930-5464) /uL Lymph # (Auto) 400 L (0035-3335) /uL [place] # (Auto) 500 (0-900) /uL Eos # (Auto) 100 (0-450) /uL Baso # (Auto) 0 (0-100) /uL Sodium 139 (137-145) mmol/L Potassium 4.1 (3.4-5.1) mmol/L Chloride 102 (98-107) mmol/L Carbon Dioxide 25 (22-32) mmol/L BUN 18 H (7-17) mg/dL Creatinine 0.78 (0.52-1.04) mg/dL Estimated GFR > 60 (>60) mL/min BUN/Creatinine Ratio 23.1 H (6-22) Glucose 115 H (70-100) mg/dL Calcium 9.4 (8.4-10.2) mg/dL Total Bilirubin 1.1 (0.2-1.3) mg/dL AST 29 (14-36) IU/L ALT 35 H (<35) IU/L Alkaline Phosphatase 60 (38-126) U/L Total Protein 8.7 H (6.3-8.2) g/dL Albumin 5.1 H (3.5-5.0) g/dL Globulin 3.6 (1.7-4.1) g/dL Albumin/Globulin Ratio 1.4 (1.0-2.8) HCG, Quant < 2.4 mIU/mL Discharge Plan Departure Patient Disposition: Home Clinical Impression: Nausea vomiting and diarrhea Instructions: DI for Nausea -- Adult Activity Restrictions/Additional Instructions: Rest at home. Drink clear liquids. Advance your diet as tolerated. Zofran every 4 hours as needed for nausea. Tylenol 2 tablets every 4 hours for cramping. No work for 3 days. Return the ER if worse. Prescriptions: New ondansetron 4 mg tablet,disintegrating 4 mg PO Q4-6H PRN (Reason: nausea and vomiting) Qty: 20 0RF No Action sucralfate 1 GM tablet 1 gm PO ACHS Qty: 0 famotidine 20 MG tablet 20 mg PO QDAY Qty: 0 oxycodone 5 MG tablet 5 mg PO Q4HP PRNQty: 30 0RF Delsym Cough 15 mg tablet 30 mg PO Q6H PRN (Reason: cough) Qty: 10 0RF ketorolac 10 mg tablet 10 mg PO Q8H PRN (Reason: pain) Qty: 14 0RF Stand Alone Forms: Patient Portal/API, Work Release Note
[2022-08-02 06:47] LABS: Add Manual Diff / Slide Review NO; Basophils Absolute Auto 0 /uL (0-100); Basophils Percent Auto 0.1 % (0-2); Eosinophils Absolute Auto 100 /uL (0-450); Eosinophils Percent Auto 0.9 % (2-4); Hematocrit 42.7 % (36-46); Hemoglobin 14.6 g/dL (12.0-16.0); Lymphocytes Absolute Auto 400 /uL (1100-4500); Lymphocytes Percent Auto 4.4 % (25-40); Mean Corpuscular HGB Conc 34.1 % (30-36); Mean Corpuscular Hemoglobin 29.4 PG (26-34); Mean Corpuscular Volume 86.2 fL (80-100); Monocytes Absolute Auto 500 /uL (0-900); Monocytes Percent Auto 4.6 % (3-14); Neutrophils Absolute Auto 9200 /uL (1500-7000); Platelet Count 234 X10^3/uL (150-400); Red Blood Cell Count 4.96 X10^6/uL (4.0-5.2); Red Cell Distribution Width 13.6 % (11.6-14.8); White Blood Cell Count 10.2 X10^3/uL (4.5-11.0)
[2022-08-02] MEDS: ONDANSETRON 4 MG/2 ML INJ IV (06:48)
[2022-08-02] MEDS: PANTOPRAZOLE 40 MG VIAL IV (06:48)
[2022-08-02] MEDS: SODIUM CHLORIDE 0.9% 1,000 ML 2000 ML IV (06:49)
[2022-08-02 07:00] LABS: Alanine Aminotransferase 35 IU/L (<35); Albumin 5.1 g/dL (3.5-5.0); Albumin Globulin Ratio 1.4 (1.0-2.8); Alkaline Phosphatase 60 U/L (38-126); Aspartate Aminotransferase 29 IU/L (14-36); BUN Creatinine Ratio 23.1 (6-22); Bilirubin Total 1.1 mg/dL (0.2-1.3); Blood Urea Nitrogen 18 mg/dL (7-17); Calcium 9.4 mg/dL (8.4-10.2); Carbon Dioxide 25 mmol/L (22-32); Chloride 102 mmol/L (98-107); Estimated Glomerular Filt Rate > 60 mL/min (>60); Globulin 3.6 g/dL (1.7-4.1); Glucose 115 mg/dL (70-100); HEMOLYSIS < 15 (0-50); Potassium 4.1 mmol/L (3.4-5.1); Sodium 139 mmol/L (137-145); Total Protein 8.7 g/dL (6.3-8.2)
[2022-08-02 07:48] LABS: HCG Quantitative /Beta subunit < 2.4 mIU/mL
[2022-08-02] MEDS: KETOROLAC 30 MG/ML VIAL IV (09:02)
[2022-08-02] MEDS: SODIUM CHLORIDE 0.9% 1,000 ML 1000 ML IV (09:05)
== END 2022-08-02 10:20 | disposition home or self-care (01) ==
PROVIDERS: Emergency Provider Emergency Medicine; Family Provider Pediatrics
DX: R11.2 Nausea with vomiting, unspecified (principal); R19.7 Diarrhea, unspecified
CPT/HCPCS: 36415; 80053; 84702; 85025; 96361; 96374; 96375; 99284; C9113; J1885; J2405

== ENCOUNTER 2022-08-30 00:26 | Emergency (ER) | payer OTHER, MEDICAID, SELFPAY ==
[2022-08-30 00:35] VITALS: BP 121/79; PULSE 80; RESP 18; TEMP 36.6; O2SAT 97; BMI 30.7
--- NOTE | 2022-08-30 02:23 | ED_ITS ---
HPI - Pediatric GI General Chief Complaint: Abdominal Pain Stated Complaint: ABD PAIN Time Seen by Provider: 08/30/22 00:46 Source: patient Mode of arrival: Ambulatory History of Present Illness HPI narrative: 21-year-old female nonsmoker presents with her daughter and a chief complaint of about 6 hours of lower abdominal pain and cramping over the course of the afternoon. She denies runny nose, sore throat or cough. She denies chest pain or shortness of breath. She denies nausea, vomiting or diarrhea. She is had no change in medications or diet. She denies dysuria, frequency or urgency. She has no vaginal bleeding or discharge. Her pain is worse when she moves and improves with rest Related Data Home Medications Medication Instructions Recorded Confirmed famotidine 20 mg tablet 20 mg PO QDAY ##0 04/16/17 sucralfate 1 gram tablet 1 gm PO ACHS ##0 04/16/17 Previous Rx's Medication Instructions Recorded oxycodone 5 mg tablet 5 mg PO Q4HP PRN #30 tabs 04/17/17 dextromethorphan HBr 15 mg tablet 30 mg PO Q6H PRN cough #10 tabs 05/07/21 (Delsym Cough) ketorolac 10 mg tablet 10 mg PO Q8H PRN pain #14 tabs 07/30/21 ondansetron 4 mg disintegrating 4 mg PO Q4-6H PRN nausea and 08/02/22 tablet vomiting #20 tabs Allergies Allergy/AdvReac Type Severity Reaction Status Date / Time No Known Allergies Allergy Uncoded 08/08/17 12:47 Pediatric Review of Systems Review of Systems: GENERAL: Denies chills, fatigue, malaise, fever, sweats. HEENT: Denies sinus pain, ear pain, sore throat, difficulty swallowing, dizziness. RESPIRATORY: Denies dyspnea, cough, wheezing, hemoptysis, sputum. CARDIOVASCULAR: Denies chest pain, palpitations, orthopnea, edema, GASTROINTESTINAL: Denies nausea, vomiting, abdominal pain, diarrhea, constipation, melena. : Denies dysuria, frequency, incontinence, hematuria, urinary retention. MUSCULOSKELETAL: denies weakness, joint pain, or bony pain SKIN: Denies rash, skin lesions, or other NEUROLOGIC: Denies weakness, headache, numbness, change in speech, confusion, seizures, incoordination. PSYCHIATRIC: No concerning psychosocial issues. 12 point review of systems is negative except for those stated above Patient History Social History Smoking Status: Never smoker Smoking Status: Never smoker alcohol intake frequency: other Substance Use Type: does not use Pediatric Exam Initial Vital Signs Initial Vital Signs: Vital Signs Temperature 98 F 08/30/22 00:35 Pulse Rate 80 08/30/22 00:35 Respiratory Rate 18 08/30/22 00:35 Blood Pressure 121/79 08/30/22 00:35 Pulse Oximetry 97 08/30/22 00:35 Oxygen Delivery Method Room Air 08/30/22 00:35 General Limitations: no limitations Course Orders Ordered: Discontinued Medications Sodium Chloride (Normal Saline 0.9%) 1,000 mls @ 1,000 mls/hr IV BOLUS ONE Stop: 08/30/22 04:57 Last Infusion: 08/30/22 06:39 Dose: 0 mls/hr Documented By: Admin: 08/30/22 04:35 Dose: 1,000 mls/hr Documented By: DHRUV Vital Signs Vital signs: Vital Signs - 8 hr 08/30/22 00:35 Temperature 98 F Pulse Rate 80 Respiratory Rate 18 Blood Pressure 121/79 Pulse Oximetry 97 Oxygen Delivery Method Room Air Medical Decision Making Lab Data 08/30/22 04:30 08/30/22 04:30 Labs: Lab Results 08/30/22 08/30/22 Range/Units 04:30 04:30 WBC 10.0 (4.5-11.0) X10^3/uL RBC 4.58 (4.0-5.2) X10^6/uL Hgb 13.5 (12.0-16.0) g/dL Hct 38.9 (36-46) % MCV 85.0 (80-100) fL MCH 29.5 (26-34) PG MCHC 34.6 (30-36) % RDW 13.4 (11.6-14.8) % Plt Count 308 (150-400) X10^3/uL Neut % (Auto) 81.6 H (50-75) % Lymph % (Auto) 14.5 L (25-40) % [place] % (Auto) 3.1 (3-14) % Eos % (Auto) 0.3 L (2-4) % Baso % (Auto) 0.5 (0-2) % Neut # (Auto) 8200 H (3804-5510) /uL Lymph # (Auto) 1500 (5279-0638) /uL [place] # (Auto) 300 (0-900) /uL Eos # (Auto) 0 (0-450) /uL Baso # (Auto) 100 (0-100) /uL Sodium 137 (137-145) mmol/L Potassium 4.3 (3.4-5.1) mmol/L Chloride 102 (98-107) mmol/L Carbon Dioxide 23 (22-32) mmol/L BUN 8 (7-17) mg/dL Creatinine 0.56 (0.52-1.04) mg/dL Estimated GFR > 60 (>60) mL/min BUN/Creatinine Ratio 14.3 (6-22) Glucose 122 H (70-100) mg/dL Calcium 9.0 (8.4-10.2) mg/dL Total Bilirubin 0.5 (0.2-1.3) mg/dL AST 20 (14-36) IU/L ALT 23 (<35) IU/L Alkaline Phosphatase 61 (38-126) U/L Total Protein 7.9 (6.3-8.2) g/dL Albumin 4.6 (3.5-5.0) g/dL Globulin 3.3 (1.7-4.1) g/dL Albumin/Globulin Ratio 1.4 (1.0-2.8) Lipase 49 (23-300) U/L Point of Care Testing Test Results Negative Urine Dip Bedside Urine Glucose Negative Bedside Urine Bilirubin - Negative Bedside Urine Ketone - Negative Urine Specific [place] 1.015 Bedside Urine Occult Blood - Negative Bedside Urine pH 7 Bedside Urine Urobilinogen +/- 1mg Bedside Urine Nitrite - Negative Bedside Urine Leukocytes - Negative Esterase Point of care testing: Point of Care Testing Test Results Negative Urine Dip Bedside Urine Glucose Negative Bedside Urine Bilirubin - Negative Bedside Urine Ketone - Negative Urine Specific [place] 1.015 Bedside Urine Occult Blood - Negative Bedside Urine pH 7 Bedside Urine Urobilinogen +/- 1mg Bedside Urine Nitrite - Negative Bedside Urine Leukocytes - Negative Esterase Discharge Plan Departure Patient Disposition: Home Clinical Impression: Abdominal pain Instructions: DI for Abdominal Pain-Adult Activity Restrictions/Additional Instructions: *You have been diagnosed with [abdominal pain] * As we discussed your history and physical exam as well as labs and imaging are very reassuring. There is no evidence of any severe diagnoses that would require a specific or immediate intervention. *What to do: *Please continue to take your regular medications as directed. *Please follow up with your primary care provider in 2-3 days, call for an ap pointment. Let them know you were seen in the Emergency Department and that we ask that you be seen in follow up. We will electronically transmit a record of today's note if your PCP is in our system *Please consider a clear liquid diet for the next 24-48 hours and then slowly advance to regular as tolerated. Also, try to avoid alcohol, nicotine, caffeine, spicy, acidic or fatty foods as this may worsen your symptoms *If you do not have a primary care provider please contact the [facility] Resource line at [phone]. They will ask some questions about your medical history and help get you set up with a doctor in the community. *Return to Emergency Department if you should have any new, worsening or concerning symptoms, such as [fever greater than 101 F, shaking chills, worsenin g pain, persistent vomiting or other bothersome symptoms] Prescriptions: No Action sucralfate 1 GM tablet 1 gm PO ACHS Qty: 0 famotidine 20 MG tablet 20 mg PO QDAY Qty: 0 oxycodone 5 MG tablet 5 mg PO Q4HP PRNQty: 30 0RF Delsym Cough 15 mg tablet 30 mg PO Q6H PRN (Reason: cough) Qty: 10 0RF ketorolac 10 mg tablet 10 mg PO Q8H PRN (Reason: pain) Qty: 14 0RF ondansetron 4 mg tablet,disintegrating 4 mg PO Q4-6H PRN (Reason: nausea and vomiting) Qty: 20 0RF Stand Alone Forms: Patient Portal/API
[2022-08-30] MEDS: SODIUM CHLORIDE 0.9% 1,000 ML 1000 ML IV (04:35)
[2022-08-30 04:43] LABS: Add Manual Diff / Slide Review NO; Basophils Absolute Auto 100 /uL (0-100); Basophils Percent Auto 0.5 % (0-2); Eosinophils Absolute Auto 0 /uL (0-450); Eosinophils Percent Auto 0.3 % (2-4); Hematocrit 38.9 % (36-46); Hemoglobin 13.5 g/dL (12.0-16.0); Lymphocytes Absolute Auto 1500 /uL (1100-4500); Lymphocytes Percent Auto 14.5 % (25-40); Mean Corpuscular HGB Conc 34.6 % (30-36); Mean Corpuscular Hemoglobin 29.5 PG (26-34); Monocytes Absolute Auto 300 /uL (0-900); Monocytes Percent Auto 3.1 % (3-14); Neutrophils Absolute Auto 8200 /uL (1500-7000); Neutrophils Percent Auto 81.6 % (50-75); Platelet Count 308 X10^3/uL (150-400); Red Blood Cell Count 4.58 X10^6/uL (4.0-5.2); Red Cell Distribution Width 13.4 % (11.6-14.8)
[2022-08-30 04:53] LABS: Alanine Aminotransferase 23 IU/L (<35); Albumin 4.6 g/dL (3.5-5.0); Albumin Globulin Ratio 1.4 (1.0-2.8); Alkaline Phosphatase 61 U/L (38-126); Aspartate Aminotransferase 20 IU/L (14-36); BUN Creatinine Ratio 14.3 (6-22); Bilirubin Total 0.5 mg/dL (0.2-1.3); Blood Urea Nitrogen 8 mg/dL (7-17); Carbon Dioxide 23 mmol/L (22-32); Chloride 102 mmol/L (98-107); Estimated Glomerular Filt Rate > 60 mL/min (>60); Globulin 3.3 g/dL (1.7-4.1); Glucose 122 mg/dL (70-100); HEMOLYSIS < 15 (0-50); Lipase 49 U/L (23-300); Potassium 4.3 mmol/L (3.4-5.1); Sodium 137 mmol/L (137-145); Total Protein 7.9 g/dL (6.3-8.2)
--- NOTE | 2022-08-30 05:17 | DI.CT.S_ITS ---
PROCEDURE: CT ABDOMEN PELVIS W CON INDICATIONS: severe pelvic pain TECHNIQUE: After the administration of IV contrast, axial sections were acquired from the lung bases to the pubic symphysis. Coronal and sagittal reformats were performed. For radiation dose reduction, the following was used: automated exposure control, adjustment of mA and/or kV according to patient size. COMPARISON: [facility], , OB <= 14 WEEKS FETUS, 07/30/2021, 12:08. FINDINGS: Image quality: Excellent. Lung bases: Unremarkable. Heart: No significant findings. ABDOMEN: Liver: Normal size. Mild hepatic steatosis.. Gallbladder: Surgically absent. Biliary ducts: Unremarkable. Pancreas: Unremarkable. Spleen: Unremarkable. Adrenal Glands: Unremarkable. Kidneys and Ureters: Unremarkable. Stomach and Bowel: Stomach, small bowel loops, and colon are unremarkable. Peritoneum: No abnormal intraperitoneal fluid. No free air. Ventral Wall: No hernia. Abdominal Nodes: No retroperitoneal or mesenteric adenopathy by size criteria. Vessels: Aorta and inferior vena cava are normal in size. PELVIS: Pelvic Organs: Prominent cervix. Bilateral ovarian cysts measuring up to 2 cm. No free fluid in cul-de-sac or adnexa. Bladder: Unremarkable. Pelvic Nodes: No enlarged lymph nodes. Miscellaneous: No inguinal hernias are seen. Bones: Unremarkable. IMPRESSION: 1. No acute inflammatory process in abdomen or pelvis. 2. Normal appendix. 3. Bilateral ovarian cysts measuring up to 2 cm, probably a dominant ovarian follicles. 4. Prominent cervix. Please correlate with gynecological exam. No significant discrepancy with the manager night radiology preliminary report. Dictated by: Sajan Trujillo M.D. on 08/30/2022 at 7:49 Approved by: Sajan Trujillo M.D. on 08/30/2022 at 7:52
[2022-08-30 06:57] VITALS: BP 116/58; PULSE 64; RESP 17; O2SAT 98
== END 2022-08-30 06:59 | disposition home or self-care (01) ==
PROVIDERS: Emergency Provider Emergency Medicine; Family Provider Pediatrics
DX: R10.30 Lower abdominal pain, unspecified (principal)
CPT/HCPCS: 36415; 74177; 80053; 81003; 81025; 83690; 85025; 99284; Q9967

== ENCOUNTER 2023-02-05 09:59 | Emergency (ER) | payer OTHER, MEDICAID, SELFPAY ==
[2023-02-05 10:05] VITALS: BP 131/87; PULSE 89; RESP 18; TEMP 36.6; O2SAT 100
--- NOTE | 2023-02-05 10:12 | DI.RAD.S_ITS ---
PROCEDURE: XR CHEST 1V INDICATIONS: Eval for pneumonia TECHNIQUE: One view of the chest was acquired. COMPARISON: [facility], CR, XR CHEST 1V, 05/07/2021, 17:45. FINDINGS: Surgical changes and devices: None. Lungs and pleura: Lungs are clear. No pleural effusions or pneumothorax. Mediastinum: Mediastinal contours appear normal. Heart size is normal. Bones and chest wall: No suspicious bony lesions. Overlying soft tissues appear unremarkable. IMPRESSION: Portable chest within normal limits for age. Dictated by: Devendra Ahumada M.D. on 02/05/2023 at 10:32 Approved by: Devendra Ahumada M.D. on 02/05/2023 at 10:32
[2023-02-05 10:36] LABS: COVID19 -Nasal RAPID Negative (Negative)
--- NOTE | 2023-02-05 11:08 | ED.URI ---
HPI - URI/Sore Throat <Stewart Wells PA-C - Last Filed: 02/05/23 11:12> General Chief Complaint: Upper Respiratory Symptoms Stated Complaint: chest hurts when breathing/metalic taste/cough Time Seen by Provider: 02/05/23 10:11 Source: patient Mode of arrival: Ambulatory History of Present Illness HPI Narrative: 22-year-old female unvaccinated for COVID-19 and the flu presents to the ED with 2 days of upper respiratory symptoms. Patient complains of a runny nose, nasal congestion, cough, chest discomfort from coughing, nausea. Patient denies fever, chills, vomiting, diarrhea, shortness of breath. Patient took DayQuil with some relief. Related Data Previous Rx's Medication Instructions Recorded benzonatate 200 mg capsule 200 mg PO TID PRN cough #30 caps 02/05/23 Allergies Allergy/AdvReac Type Severity Reaction Status Date / Time No Known Drug Allergies Allergy Verified 02/05/23 10:15 Review of Systems <Stewart Wells PA-C - Last Filed: 02/05/23 11:12> Constitutional Constitutional: Denies chills, Denies fatigue, Denies fever(s), Denies frequent falls, Denies lethargy and Denies weakness Eyes Eyes: Denies change in vision, Denies eye discharge, Denies irritation and Denies loss of vision ENT Ears, Nose, Mouth, and Throat: Denies change in voice, Denies dizziness, Reports nasal congestion, Reports nasal discharge, Denies neck pain, Denies sore throat and Denies throat swelling Cardiovascular Cardiovascular: Denies chest pain, Denies irregular heart rhythm, Denies lightheadedness, Denies palpitations, Denies dyspnea, Denies dyspnea on exertion and Denies orthopnea Respiratory Respiratory: Reports cough, Denies dyspnea, Denies dyspnea on exertion and Denies wheezing Gastrointestinal Gastrointestinal: Denies abdominal pain, Denies change in bowel habits, Denies diarrhea, Reports nausea and Denies vomiting Musculoskeletal Musculoskeletal: Denies neck pain and Denies numbness Integumentary/Breasts Skin/Breast: Denies pruritus, Denies erythema, Denies rash and Denies wounds Neurologic Neurologic: Denies behavioral changes, Denies confusion, Denies dizziness, Denies frequent falls, Denies loss of vision, Denies numbness and Denies weakness Psychiatric Psychiatric: Denies anxiety, Denies behavioral changes, Denies confusion, Denies depression, Denies homicidal ideation and Denies suicidal ideation Endocrine Endocrine: Denies fatigue, Denies flushing and Denies palpitations Hematologic/Lymphatic Hematologic/Lymphatic: Denies easy bruising Allergic/Immunologic Allergic/Immunologic: Denies urticaria, Denies throat swelling and Denies wheezing Patient History <Stewart Wells PA-C - Last Filed: 02/05/23 11:12> Social History Smoking Status: Never smoker Smoking Status: Never smoker alcohol intake frequency: other Substance Use Type: does not use Exam <Stewart Wells PA-C - Last Filed: 02/05/23 11:12> Narrative Exam Narrative: Const General:?cooperative, healthy appearing and comfortable [facility] Head:?normal to inspection Ears:?hearing grossly normal bilaterally Nose:?external nose normal Face and sinus:?normal facial exam and sinuses nontender Mouth:?oral mucosae normal Throat:?posterior oropharynx normal Eyes General:?appearance normal, both eyes and all related structures Neck Neck:?normal visual inspection and no lymphadenopathy noted Resp Effort & Inspection:?normal respiratory effort Auscultation:?clear to auscultation bilaterally Cardio Rate:?regular rate Rhythm:?regular rhythm Neuro General:?patient alert, patient awake and patient oriented x3 Initial Vital Signs Initial Vital Signs: Vital Signs Temperature 97.8 F 02/05/23 10:05 Pulse Rate 89 02/05/23 10:05 Respiratory Rate 18 02/05/23 10:05 Blood Pressure 131/87 02/05/23 10:05 Pulse Oximetry 100 02/05/23 10:05 Oxygen Delivery Method Room Air 02/05/23 10:05 <Jass Moreau DO - Last Filed: 02/05/23 12:15> Initial Vital Signs Initial Vital Signs: Vital Signs Temperature 97.8 F 02/05/23 10:05 Pulse Rate 89 02/05/23 10:05 Respiratory Rate 18 02/05/23 10:05 Blood Pressure 131/87 02/05/23 10:05 Pulse Oximetry 100 02/05/23 10:05 Oxygen Delivery Method Room Air 02/05/23 10:05 Course <Stewart Wells PA-C - Last Filed: 02/05/23 11:12> Orders Ordered: ED Orders 02/05/23 09:19 COVID19 -Nasal RAPID Stat 02/05/23 10:12 XR chest 1V Stat Vital Signs Vital signs: Vital Signs - 8 hr 02/05/23 10:05 Temperature 97.8 F Pulse Rate 89 Respiratory Rate 18 Blood Pressure 131/87 Pulse Oximetry 100 Oxygen Delivery Method Room Air <Jass Moreau DO - Last Filed: 02/05/23 12:15> Orders Ordered: ED Orders 02/05/23 09:19 COVID19 -Nasal RAPID Stat 02/05/23 10:12 XR chest 1V Stat Vital Signs Vital signs: Vital Signs - 8 hr 02/05/23 10:05 Temperature 97.8 F Pulse Rate 89 Respiratory Rate 18 Blood Pressure 131/87 Pulse Oximetry 100 Oxygen Delivery Method Room Air MDM - URI/Sore Throat <Stewart Wells PA-C - Last Filed: 02/05/23 11:12> Lab Data Labs: Lab Results 02/05/23 Range/Units 09:19 SARS-CoV-2 (PCR) Negative (Negative) MDM Narrative Medical decision making narrative: 22-year-old female unvaccinated for COVID-19 and the flu presents to the ED with 2 days of upper respiratory symptoms. Concern for COVID-19 infection versus other viral upper respiratory infection versus pneumonia versus other. Will obtain COVID-19 test, chest x-ray, reassess. Chest x-ray without acute findings. COVID-19 test was negative. Patient's symptoms likely due to a viral URI. Prescribed Tessalon Perles for cough. Recommend supportive care. Recommend follow-up with PCP as soon as possible. ED return precautions discussed with patient. Patient verbalized understanding. Medical records reviewed: Yes <Jass Moreau DO - Last Filed: 02/05/23 12:15> Lab Data Labs: Lab Results 02/05/23 Range/Units 09:19 SARS-CoV-2 (PCR) Negative (Negative) Discharge Plan Departure Patient Disposition: Home Clinical Impression: Upper respiratory infection Instructions: DI for Viral Upper Respiratory Infection -- Adult Activity Restrictions/Additional Instructions: You were evaluated in the ED today for a cough. Your COVID 19 test was negative. Your chest x-ray was normal. Your symptoms are likely due to a viral upper respiratory infection. Treatment for this is supportive, consisting of [id number] cough and cold medications. You may also take Tessalon Perles for the cough that has been prescribed for you today. Please ensure good hydration. Please follow-up with your PCP as soon as possible. Return to the ED if you experience any shortness of breath, worsening symptoms. Prescriptions: New benzonatate 200 mg capsule 200 mg PO TID PRN (Reason: cough) Qty: 30 0RF Referrals: Miscellaneous,Doctor, MD [Primary Care Provider] - Stand Alone Forms: Patient Portal/API, Work Release Note ED Sign-out <Jass Moreau, - Last Filed: 02/05/23 12:15> Cosign ED Attending Cosignature Attestation: Dr Moreau Co-Sign Statement: I was available for consultation during this patient's emergency department visit. This chart is signed by myself for administrative purposes only. I did not have direct contact with this patient during this visit. They were seen independently by the APC.
== END 2023-02-05 11:16 | disposition home or self-care (01) ==
PROVIDERS: Emergency Medicine; Emergency Provider Student in an Organized Health Care Education/Training Program; Family Provider Pediatrics
DX: J06.9 Acute upper respiratory infection, unspecified (principal); Z20.822 Contact with and (suspected) exposure to COVID-19
CPT/HCPCS: 71045; 87635; 99283; C9803

== ENCOUNTER 2023-04-12 16:02 | Emergency (ER) | payer OTHER, MEDICAID, SELFPAY ==
[2023-04-12] VITALS (9 sets, daily range): BP systolic 99–140; BP diastolic 58–88; PULSE 78–99; RESP 14–18; TEMP 36.6; O2SAT 98–100; BMI 31.8
--- NOTE | 2023-04-12 16:23 | DI.US.S_ITS ---
PROCEDURE: US OB <= 14 WEEKS FETUS INDICATIONS: bright red bleeding, about 8 weeks OUTSIDE/PRIOR DATING DATA: Last menstrual period (LMP): 02/09/2023. LMP-based estimated date of delivery (JUDY): 11/16/2023. First dating scan (date and location): 04/12/2023. Estimated date of delivery (JUDY) from first dating scan: 12/05/2023. TECHNIQUE: Real-time scanning was performed of the fetus and maternal pelvic organs, with image documentation. Endovaginal scanning was also performed to better visualize the fetus and maternal ovaries. COMPARISON: [facility], , OB <= 14 WEEKS FETUS, 07/30/2021, 12:08. FINDINGS: Embryo: [place]-rump length of 0.43 cm, consistent with 6 weeks and 1 day. Yolk sac is present. Heart rate: Not detected Maternal organs: Ovaries within normal limits. IMPRESSION: Intrauterine consistent with 6 weeks and 1 day. No heart rate is detected. Differential includes early intrauterine or failed . Recommend beta HCG trend and short-term follow-up ultrasound. We strive to produce accurate, complete, and clear reports of imaging services. To assist us in improving patient care, this report was composed using standard report templates and voice recognition software. Therefore, it may contain abnormal punctuation, insertions and/or omissions. Occasional wrong-word or sound-alike substitutions may occur. Though we review the report and make efforts to correct it, we do recommend that the report be read carefully in proper context to recognize any text inaccuracies. Dictated by: Arthur Jarrett M.D. on 04/12/2023 at 17:08 Approved by: Arthur Jarrett M.D. on 04/12/2023 at 17:12
[2023-04-12 16:35] LABS: Add Manual Diff / Slide Review NO; Basophils Absolute Auto 0 /uL (0-100); Basophils Percent Auto 0.4 % (0-2); Eosinophils Absolute Auto 200 /uL (0-450); Eosinophils Percent Auto 1.5 % (2-4); Hematocrit 38.9 % (36-46); Hemoglobin 13.5 g/dL (12.0-16.0); Lymphocytes Absolute Auto 2200 /uL (1100-4500); Lymphocytes Percent Auto 18.6 % (25-40); Mean Corpuscular HGB Conc 34.7 % (30-36); Mean Corpuscular Hemoglobin 30.2 PG (26-34); Mean Corpuscular Volume 86.9 fL (80-100); Monocytes Absolute Auto 700 /uL (0-900); Neutrophils Absolute Auto 8600 /uL (1500-7000); Neutrophils Percent Auto 73.5 % (50-75); Platelet Count 303 X10^3/uL (150-400); Red Blood Cell Count 4.48 X10^6/uL (4.0-5.2); Red Cell Distribution Width 13.5 % (11.6-14.8); White Blood Cell Count 11.7 X10^3/uL (4.5-11.0)
[2023-04-12 16:46] LABS: Alanine Aminotransferase 20 IU/L (<35); Albumin 4.7 g/dL (3.5-5.0); Albumin Globulin Ratio 1.5 (1.0-2.8); Alkaline Phosphatase 52 U/L (38-126); Aspartate Aminotransferase 25 IU/L (14-36); BUN Creatinine Ratio 12.7 (6-22); Bilirubin Total 0.6 mg/dL (0.2-1.3); Blood Urea Nitrogen 7 mg/dL (7-17); Calcium 10.2 mg/dL (8.4-10.2); Carbon Dioxide 24 mmol/L (22-32); Chloride 104 mmol/L (98-107); Estimated Glomerular Filt Rate > 60 mL/min (>60); Globulin 3.1 g/dL (1.7-4.1); Glucose 113 mg/dL (70-100); HEMOLYSIS < 15 (0-50); Potassium 3.7 mmol/L (3.4-5.1); Sodium 137 mmol/L (137-145); Total Protein 7.8 g/dL (6.3-8.2)
[2023-04-12 17:29] LABS: Bacteria Urine Occasional (0-1); Culture Indicated Urine Cult Not Indicated; RBC Urine 30-100/HPF (0-5/HPF); Squamous Epithelial Cell Urine 1-5 /HPF (0-5/HPF); WBC Urine 0-1/HPF (0-5/HPF)
[2023-04-12 19:47] LABS: HCG Quantitative /Beta subunit 14076 mIU/mL
--- NOTE | 2023-04-12 19:53 | ED_ITS ---
HPI - General Adult General Chief complaint: OB/Uterine Contractions Stated complaint: thinks she had a miscarriage Time Seen by Provider: 04/12/23 19:18 Source: patient Mode of arrival: Ambulatory History of Present Illness HPI narrative: Patient is a 22-year-old at approximately 8 weeks EGA secondary to her last menstrual period. Her 1st resulted in a live . 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 This was an unplanned however no attempt was made to prevent such as control pills. She states this morning she started to have vaginal bleeding. She states it is about as much as a menstrual cycle. No fevers. No vomiting. No urinary symptoms. No change in bowel habits. She is yet to see an OB provider during this although she has an appointment on Sunday to have an ultrasound and on Sunday with an OB provider. Related Data Previous Rx's Medication Instructions Recorded benzonatate 200 mg capsule 200 mg PO TID PRN cough #30 caps 02/05/23 Allergies Allergy/AdvReac Type Severity Reaction Status Date / Time No Known Drug Allergies Allergy Verified 02/05/23 10:15 Review of Systems Constitutional Constitutional: Reports system reviewed and no additional complaints, except as documented Gastrointestinal Gastrointestinal: Reports system reviewed and no additional complaints, except as documented Genitourinary Genitourinary: Reports system reviewed and no additional complaints, except as documented Musculoskeletal Musculoskeletal: Reports system reviewed and no additional complaints, except as documented Patient History Social History Smoking Status: Never smoker Smoking Status: Never smoker alcohol intake frequency: other Substance Use Type: does not use Exam Initial Vital Signs Initial Vital Signs: Vital Signs Temperature 98 F 04/12/23 16:07 Pulse Rate 93 H 04/12/23 16:07 Respiratory Rate 18 04/12/23 16:07 Blood Pressure 140/88 04/12/23 16:07 Pulse Oximetry 100 04/12/23 16:07 Oxygen Delivery Method Room Air 04/12/23 16:07 HENMT Head: normal to inspection and normocephalic Resp Effort & Inspection: normal respiratory effort Cardio Rate: regular rate GI Inspection: normal to inspection and non-distended Neuro General: patient alert, patient awake and moves all extremities Extrem General: normal to inspection Course Orders Ordered: ED Orders 04/12/23 16:21 ABO RH Type Stat Complete Blood Count AUTO DIFF Stat Comprehensive Metabolic Panel Stat HCG Quantitative /Beta subunit Stat Urine Microscopic Stat 04/12/23 16:23 US OB <= 14 weeks fetus Stat Discontinued Medications Ondansetron HCl (Ondansetron 4 Mg Odt) 4 mg SL NOW PRN PRN Reason: Nausea And Vomiting Ondansetron HCl (Ondansetron 4 Mg/2 Ml Inj) 4 mg IV NOW PRN PRN Reason: Nausea And Vomiting Vital Signs Vital signs: Vital Signs - 8 hr 04/12/23 16:07 04/12/23 17:36 04/12/23 17:38 Temperature 98 F Pulse Rate 93 H 94 H 92 H Respiratory Rate 18 14 Blood Pressure 140/88 116/73 Pulse Oximetry 100 99 100 Oxygen Delivery Method Room Air Room Air 04/12/23 17:38 04/12/23 17:38 04/12/23 18:00 Temperature Pulse Rate 92 H Respiratory Rate Blood Pressure 116/73 106/70 Pulse Oximetry 100 Oxygen Delivery Method 04/12/23 18:00 04/12/23 18:30 04/12/23 18:30 Temperature Pulse Rate 93 H 90 Respiratory Rate Blood Pressure 116/71 Pulse Oximetry 98 99 Oxygen Delivery Method Room Air 04/12/23 19:00 04/12/23 19:00 04/12/23 19:30 Temperature Pulse Rate 78 Respiratory Rate Blood Pressure 100/58 L 99/58 L Pulse Oximetry 100 Oxygen Delivery Method 04/12/23 19:30 04/12/23 20:00 04/12/23 20:02 Temperature Pulse Rate 78 99 H Respiratory Rate Blood Pressure 138/78 Pulse Oximetry 99 99 Oxygen Delivery Method Room Air Room Air Medical Decision Making Lab Data Lab results reviewed: Yes I reviewed the patient's lab results. 04/12/23 16:21 04/12/23 16:21 Labs: Lab Results 04/12/23 Range/Units 16:21 WBC 11.7 H (4.5-11.0) X10^3/uL RBC 4.48 (4.0-5.2) X10^6/uL Hgb 13.5 (12.0-16.0) g/dL Hct 38.9 (36-46) % MCV 86.9 (80-100) fL MCH 30.2 (26-34) PG MCHC 34.7 (30-36) % RDW 13.5 (11.6-14.8) % Plt Count 303 (150-400) X10^3/uL Neut % (Auto) 73.5 (50-75) % Lymph % (Auto) 18.6 L (25-40) % [place] % (Auto) 6.0 (3-14) % Eos % (Auto) 1.5 L (2-4) % Baso % (Auto) 0.4 (0-2) % Neut # (Auto) 8600 H (1972-3237) /uL Lymph # (Auto) 2200 (6487-5983) /uL [place] # (Auto) 700 (0-900) /uL Eos # (Auto) 200 (0-450) /uL Baso # (Auto) 0 (0-100) /uL Sodium 137 (137-145) mmol/L Potassium 3.7 (3.4-5.1) mmol/L Chloride 104 (98-107) mmol/L Carbon Dioxide 24 (22-32) mmol/L BUN 7 (7-17) mg/dL Creatinine 0.55 (0.52-1.04) mg/dL Estimated GFR > 60 (>60) mL/min BUN/Creatinine Ratio 12.7 (6-22) Glucose 113 H (70-100) mg/dL Calcium 10.2 (8.4-10.2) mg/dL Total Bilirubin 0.6 (0.2-1.3) mg/dL AST 25 (14-36) IU/L ALT 20 (<35) IU/L Alkaline Phosphatase 52 (38-126) U/L Total Protein 7.8 (6.3-8.2) g/dL Albumin 4.7 (3.5-5.0) g/dL Globulin 3.1 (1.7-4.1) g/dL Albumin/Globulin Ratio 1.5 (1.0-2.8) HCG, Quant 20541 mIU/mL Urine RBC 30-100/hpf H (0-5/HPF) Urine WBC 0-1/hpf (0-5/HPF) Ur Squamous Epith Cells 1-5 /hpf (0-5/HPF) Urine Bacteria Occasional (0-1) (None) Ur Culture Indicated? Cult not indicated Blood Type O Positive Point of Care Testing Test Results Positive Urine Dip Bedside Urine Glucose Negative Bedside Urine Bilirubin - Negative Bedside Urine Ketone - Negative Urine Specific [place] 1.020 Bedside Urine Occult Blood +++ Bedside Urine pH 6.0 Bedside Urine Protein - Negative Bedside Urine Urobilinogen - Negative Bedside Urine Nitrite - Negative Bedside Urine Leukocytes - Negative Esterase Point of care testing: Point of Care Testing Test Results Positive Urine Dip Bedside Urine Glucose Negative Bedside Urine Bilirubin - Negative Bedside Urine Ketone - Negative Urine Specific [place] 1.020 Bedside Urine Occult Blood +++ Bedside Urine pH 6.0 Bedside Urine Protein - Negative Bedside Urine Urobilinogen - Negative Bedside Urine Nitrite - Negative Bedside Urine Leukocytes - Negative Esterase Imaging Data US - OB: Radiologist's Impression: PROCEDURE: US OB <= 14 WEEKS FETUS INDICATIONS: bright red bleeding, about 8 weeks OUTSIDE/PRIOR DATING DATA: Last menstrual period (LMP): 02/09/2023. LMP-based estimated date of delivery (JUDY): 11/16/2023. First dating scan (date and location): 04/12/2023. Estimated date of delivery (JUDY) from first dating scan: 12/05/2023. TECHNIQUE: Real-time scanning was performed of the fetus and maternal pelvic organs, with image documentation. Endovaginal scanning was also performed to better visualize the fetus and maternal ovaries. COMPARISON: [facility], , US OB <= 14 WEEKS FETUS, 07/30/2021, 12:08. FINDINGS: Embryo: [place]-rump length of 0.43 cm, consistent with 6 weeks and 1 day. Yolk sac is present. Heart rate: Not detected Maternal organs: Ovaries within normal limits. IMPRESSION: Intrauterine consistent with 6 weeks and 1 day. No heart rate is detected. Differential includes early intrauterine or failed . Recommend beta HCG trend and short-term follow-up ultrasound MDM Narrative Medical decision making narrative: Rh positive. No indication for RhoGAM. Blood work is unremarkable. Ultrasound shows intrauterine at 6 weeks and 1 day however there was no cardiac activity. In the setting of the patient's presentation this is concerning for a miscarriage. I did discuss this with the patient. There was no indication for emergent OB consultation or intervention. Advised that she contact her OB provider tomorrow to discuss how they would like to proceed at the beginning of next week whether not they would like to repeat an ultrasound or have her see the OB provider. We did discuss return precautions. She expressed understanding and agreement. Discharge Plan Departure Patient Disposition: Home Clinical Impression: Vaginal bleeding in Instructions: DI for Vaginal Bleeding Activity Restrictions/Additional Instructions: I do recommend that tomorrow you contact your OB provider to discuss how they would like to follow-up on Sunday. If you can not get in touch with them tomorrow keep your appointment on Sunday for the ultrasound. Return to the emergency department for fevers, worsening pain, bleeding more than several pads an hour for several hours in a row. Prescriptions: No Action benzonatate 200 mg capsule 200 mg PO TID PRN (Reason: cough) Qty: 30 0RF Referrals: Miscellaneous,Doctor, MD [Primary Care Provider] - Stand Alone Forms: Patient Portal/API
== END 2023-04-12 20:06 | disposition home or self-care (01) ==
PROVIDERS: Emergency Medicine; Emergency Provider Emergency Medicine; Family Provider Pediatrics
DX: O20.9 Hemorrhage in early pregnancy, unspecified (principal); Z3A.08 8 weeks gestation of pregnancy
CPT/HCPCS: 36415; 76801; 76817; 80053; 81003; 81015; 81025; 84702; 85025; 86900; 86901; 99284

== ENCOUNTER → 2023-12-10 14:30 | Outpatient (CLI) | payer OTHER, SELFPAY ==
--- NOTE | 2023-12-10 14:33 | DI.RAD.S_ITS ---
PROCEDURE: XR FOOT LT MIN 3V INDICATIONS: Left foot and ankle injury TECHNIQUE: 3 views of the foot were acquired. COMPARISON: None. FINDINGS: Bones: No fractures or dislocations. No suspicious bony lesions. Soft tissues: No tibiotalar joint effusion. Achilles tendon appears normal. IMPRESSION: No acute osseous abnormality. If pain persists with conservative management, consider repeat x-ray in 10-14 days or cross-sectional imaging. Dictated by: Arthur Jarrett M.D. on 12/10/2023 at 16:41 Approved by: Arthur Jarrett M.D. on 12/10/2023 at 16:41
--- NOTE | 2023-12-10 14:33 | DI.RAD.S_ITS ---
PROCEDURE: XR ANKLE LT MIN 3V INDICATIONS: LEFT FOOT AND ANKLE INJURY TECHNIQUE: 3 views of the ankle were acquired. COMPARISON: None. FINDINGS: Bones: No fractures or dislocations. Ankle mortise is normally aligned. No suspicious bony lesions. Soft tissues: No tibiotalar joint effusion. Achilles tendon appears normal. IMPRESSION: No acute osseous abnormality. If pain persists with conservative management, consider repeat x-ray in 10-14 days or cross-sectional imaging. Dictated by: Arthur Jarrett M.D. on 12/10/2023 at 16:40 Approved by: Arthur Jarrett M.D. on 12/10/2023 at 16:41
== END ==
PROVIDERS: Family Provider Pediatrics; Referring Provider Physician Assistant Surgical; Visit Provider Physician Assistant Surgical
DX: S99.912A Unspecified injury of left ankle, initial encounter (principal); S99.922A Unspecified injury of left foot, initial encounter; X58.XXXA Exposure to other specified factors, initial encounter
CPT/HCPCS: 73610; 73630